=== PATIENT | female | born 1995 | race Hispanic/Latino ===

== ENCOUNTER 2018-08-17 00:50 | Emergency (ER) | payer OTHER, SELFPAY ==
--- NOTE | 2018-08-17 02:42 | ER ---
Nurse's Notes [facility] Name: Alexa Fields Age: 23 yrs Sex: Female : 1995 Arrival Date: 08/17/2018 Time: 00:51 Bed 9 Private MD: Diagnosis: Influenza due to identified novel influenza A virus Presentation: 08/17 01:02 Presenting complaint: Patient states: Pt reports dry cough, chest pain with cough, ea headache, shortness of breath, nausea and vomiting since Thursday. Transition of care: patient was not received from another setting of care. Onset of symptoms was August 17, 2018. Risk Assessment: Do you want to hurt yourself or someone else? Patient reports no desire to harm self or others. Initial Sepsis Screen: Does the patient meet any 2 criteria? No. Patient's initial sepsis screen is negative. Does the patient have a suspected source of infection? No. Patient's initial sepsis screen is negative. Care prior to arrival: None. 01:02 Method Of Arrival: Ambulatory ea 01:02 Acuity: HODA 4 ea Triage Assessment: 01:06 General: Appears uncomfortable, Behavior is appropriate for age. Pain: Complains of ea pain in body aches. Neuro: Level of Consciousness is awake, alert, obeys commands, Oriented to person, place, time. Cardiovascular: Patient's skin is warm and dry. Respiratory: Airway is patent Respiratory effort is even, unlabored, Respiratory pattern is regular, symmetrical. Respiratory: Parent/caregiver reports the patient having cough that is non-productive, dry, hacking. GI: Reports nausea. 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 - Social history:: Smoking status: Patient uses tobacco products, smokes one-half pack cigarettes per day. - Ebola Screening: : No symptoms or risks identified at this time. Screenin:31 Abuse screen: Denies threats or abuse. Nutritional screening: No deficits noted. bb Tuberculosis screening: No symptoms or risk factors identified. Fall Risk None identified. Assessment: 02:31 General: Appears in no apparent distress. Behavior is calm, cooperative. Neuro: Level bb of Consciousness is awake, alert, obeys commands, Oriented to person, place, time, situation. Cardiovascular: Heart tones S1 S2 present. Respiratory: Reports cough that is persistent Respiratory effort is even, unlabored, Respiratory pattern is symmetrical, Breath sounds are clear bilaterally. GI: No deficits noted. Derm: Skin is pink, warm \T\ dry. Musculoskeletal: Circulation, motion, and sensation intact. 02:48 Reassessment: Patient is alert, oriented x 3, equal unlabored respirations, skin bb warm/dry/pink. pt verbalized understanding of and agrees to plan of care discharge instructions given pt ambulated with steady gait to exit. Vital Signs: 01:05 BP 120 / 77; Pulse 97; Resp 18; Temp 97.9; Pulse Ox 98% ; Weight 73.48 kg; Height 5 ft. ea 3 in. (160.02 cm); 02:31 BP 103 / 66; Pulse 95; Resp 18 S; Temp 98.3(O); Pulse Ox 100% on R/A; bb 01:05 Body Mass Index 28.70 (73.48 kg, 160.02 cm) ea ED Course: 00:51 Patient arrived in ED. am2 01:04 Triage completed. ea 02:12 Delma Liu FNP-C is [facility]. kb 02:12 Oscar Mckee MD is Attending Physician. kb 02:31 Patient has correct armband on for positive identification. Bed in low position. Call bb light in reach. 02:31 Pulse ox on. bb 02:48 No provider procedures requiring assistance completed. Patient did not have IV access bb during this emergency room visit. Administered Medications: No medications were administered Outcome: 02:42 Discharge ordered by . kb 02:48 Discharged to home ambulatory. bb 02:48 Condition: stable 02:48 Discharge instructions given to patient, Instructed on discharge instructions, follow up and referral plans. medication usage, Demonstrated understanding of instructions, follow-up care, medications, Prescriptions given X 2. 02:49 Patient left the ED. bb Signatures: Delma Liu FNP-C FNP-Ckb Ballard, Brenda, RN RN bb Moreno, Amanda am2 Angeline Rivera RN RN ea
--- NOTE | 2018-08-17 02:42 | EDPHYS ---
Physician Documentation [facility] Name: Alexa Fields Age: 23 yrs Sex: Female : 1995 Arrival Date: 08/17/2018 Time: 00:51 Bed 9 Private MD: ED Physician Oscar Mckee HPI: 08/17 02:19 This 23 yrs old Female presents to ER via Ambulatory with complaints of Cough, kb Nausea/Vomiting, Shortness Of Breath. 02:19 The patient or guardian reports cough, that is intermittent, described as mild, with no kb sputum, flu symptoms. Onset: The symptoms/episode began/occurred 2 day(s) ago. Severity of symptoms: At their worst the symptoms were moderate, in the emergency department the symptoms are unchanged. Modifying factors: The symptoms are alleviated by nothing, the symptoms are aggravated by nothing. Associated signs and symptoms: Pertinent positives: fever, nausea, rhinorrhea, vomiting, Pertinent negatives: chest pain, diarrhea, ear ache, sore throat. The patient has not experienced similar symptoms in the past. The patient has not recently seen a physician. 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 - Social history:: Smoking status: Patient uses tobacco products, smokes one-half pack cigarettes per day. - Ebola Screening: : No symptoms or risks identified at this time. ROS: 02:18 ENT: Negative for injury, pain, and discharge, Neck: Negative for injury, pain, and kb swelling, Cardiovascular: Negative for chest pain, palpitations, and edema, Back: Negative for injury and pain, MS/Extremity: Negative for injury and deformity, Skin: Negative for injury, rash, and discoloration, Neuro: Negative for headache, weakness, numbness, tingling, and seizure. 02:18 Constitutional: Positive for fatigue, fever, malaise, Negative for body aches, chills, poor PO intake, weight loss. 02:18 Respiratory: Positive for cough, Negative for dyspnea on exertion, hemoptysis, orthopnea, pleurisy, shortness of breath, sputum production, wheezing. 02:18 Abdomen/GI: Positive for nausea and vomiting. Exam: 02:19 Constitutional: This is a well developed, well nourished patient who is awake, alert, kb and in no acute distress. Head/Face: Normocephalic, atraumatic. ENT: Nares patent. No nasal discharge, no septal abnormalities noted. Tympanic membranes are normal and external auditory canals are clear. Oropharynx with no redness, swelling, or masses, exudates, or evidence of obstruction, uvula midline. Mucous membranes moist. Neck: Trachea midline, no thyromegaly or masses palpated, and no cervical lymphadenopathy. Supple, full range of motion without nuchal rigidity, or vertebral point tenderness. No Meningismus. Chest/axilla: Normal chest wall appearance and motion. Nontender with no deformity. No lesions are appreciated. Cardiovascular: Regular rate and rhythm with a normal S1 and S2. No gallops, murmurs, or rubs. Normal PMI, no JVD. No pulse deficits. Respiratory: Lungs have equal breath sounds bilaterally, clear to auscultation and percussion. No rales, rhonchi or wheezes noted. No increased work of breathing, no retractions or nasal flaring. Abdomen/GI: Soft, non-tender, with normal bowel sounds. No distension or tympany. No guarding or rebound. No evidence of tenderness throughout. Skin: Warm, dry with normal turgor. Normal color with no rashes, no lesions, and no evidence of cellulitis. MS/ Extremity: Pulses equal, no cyanosis. Neurovascular intact. Full, normal range of motion. Neuro: Awake and alert, GCS 15, oriented to person, place, time, and situation. Cranial nerves II-XII grossly intact. Motor strength 5/5 in all extremities. Sensory grossly intact. Cerebellar exam normal. Normal gait. Vital Signs: 01:05 BP 120 / 77; Pulse 97; Resp 18; Temp 97.9; Pulse Ox 98% ; Weight 73.48 kg; Height 5 ft. ea 3 in. (160.02 cm); 02:31 BP 103 / 66; Pulse 95; Resp 18 S; Temp 98.3(O); Pulse Ox 100% on R/A; bb 01:05 Body Mass Index 28.70 (73.48 kg, 160.02 cm) ea MDM: 02:12 Patient medically screened. kb 02:19 Data reviewed: vital signs, nurses notes. Data interpreted: Pulse oximetry: on room air kb is 98 %. Interpretation: normal. Counseling: I had a detailed discussion with the patient and/or guardian regarding: the historical points, exam findings, and any diagnostic results supporting the discharge/admit diagnosis, lab results, the need for outpatient follow up, a family practitioner, to return to the emergency department if symptoms worsen or persist or if there are any questions or concerns that arise at home. 08/17 01:08 Order name: Flu; Complete Time: 02:12 ea 08/17 01:08 Order name: Strep; Complete Time: 02:41 08/17 02:42 Order name: Throat Culture EDMS Administered Medications: No medications were administered Disposition: 10:22 Co-signature as Attending Physician, Oscar Mckee MD I agree with the assessment and wa plan of care. Disposition: 08/17/18 02:42 Discharged to Home. Impression: Influenza due to identified novel influenza A virus. - Condition is Stable. - Discharge Instructions: Influenza, Adult, [id number]. - Prescriptions for Tamiflu 75 mg Oral Capsule - take 1 capsule by ORAL route every 12 hours for 5 days; 10 capsule. Zofran 4 mg Oral Tablet - take 1 tablet by ORAL route every 6 hours As needed; 20 tablet. - Medication Reconciliation Form, Thank You Letter, Antibiotic Education, Prescription Opioid Use form. - Follow up: Emergency Department; When: As needed; Reason: Worsening of condition. Follow up: Private Physician; When: 2 - 3 days; Reason: Recheck today's complaints, Continuance of care, Re-evaluation by your physician. Signatures: Dispatcher [employer] EDMS Delma Liu, [place] RN RN bb Antunez, Elena, RN RN ea Appiah, William, MD MD wa Corrections: (The following items were deleted from the chart) 02:49 02:42 08/17/2018 02:42 Discharged to Home. Impression: Influenza due to identified bb novel influenza A virus. Condition is Stable. Forms are Medication Reconciliation Form, Thank You Letter, Antibiotic Education, Prescription Opioid Use. Follow up: Emergency Department; When: As needed; Reason: Worsening of condition. Follow up: Private Physician; When: 2 - 3 days; Reason: Recheck today's complaints, Continuance of care, Re-evaluation by your physician. kb
== END 2018-08-17 02:49 | disposition home or self-care (01) ==
LOC: ER 00:50
DX: J11.1 Influenza due to unidentified influenza virus with other respiratory manifestations (principal); F17.210 Nicotine dependence, cigarettes, uncomplicated
CPT/HCPCS: 87070; 87081; 87804; 99283

== ENCOUNTER 2018-09-16 12:45 | Emergency (ER) | payer OTHER ==
--- OUTSIDE RECORDS SUMMARY | 2018-09-16 12:57 | XMS REPORT ---
:1995 [facility] Address [address] [place] [address] Dr. Lima [address] [place] [id number] Care Team Providers Name Role Phone Unavailable Unavailable Unavailable Problems This patient has no known problems. Allergies, Adverse Reactions, Alerts This patient has no known allergies or adverse reactions. Medications This patient has no known medications.
[2018-09-16 15:46] LABS: Absolute Lymphocytes (CBC) 2.7 K/uL (0.7-4.9); Absolute Monocytes 0.6 K/uL (0.1-1.3); Basophils % 0.4 % (0-1.3); Eosinophils % 1.7 % (0-4.4); Hematocrit 37.7 % (36.0-45.0); Lymphocytes % 35.7 % (15.3-44.8); MPV 10.3 fL (7.6-11.3); Monocytes % 8.5 % (3.3-12.3); RBC Red Blood Cell Count 4.21 M/uL (3.86-4.86)
[2018-09-16 15:55] LABS: Urine Blood 3+ (NEG); Urine Glucose NEGATIVE (NEG); Urine Protein NEGATIVE (NEG); Urine Specific Gravity 1.015 (1.005-1.030); Urine pH 6.5 (5.0-7.0)
[2018-09-16 16:04] LABS: Urine RBC 20-50 /HPF (NONE SEEN)
[2018-09-16 16:05] LABS: Urine Bacteria <20 /HPF (<20); Urine Culture Reflex Order REFLEXED
--- NOTE | 2018-09-16 16:21 | RAD REPORT ---
EXAM DESCRIPTION: US - Transvaginal OB - 09/16/2018 4:07 pm CLINICAL HISTORY: with vaginal bleeding COMPARISON: None. FINDINGS: The uterus 6 x 4 x 4 centimeters. A gestational sac is present within the endometrium. Wi thin this is a yolk sac and pole with a crown-rump length 4.9 millimeters. . Cardiac activity w as not visualized mily 2 Right ovary is normal in size and echotexture. Left ovary was not seen. Right and left adnexa unremar kable No significant free fluid is seen. IMPRESSION: Intrauterine with an estimated gestational age 5 weeks 6 days ADONIS 05/13/2019. Cardiac activity was not visualized. This may indicate a demise. This may represent a viable pr egnancy in which the heart rate is not yet detected. demise can also have this appearance. Foll ow up endovaginal sonogram in 1 week recommended
[2018-09-16 16:24] LABS: BUN Blood Urea Nitrogen 12 mg/dL (7-18); Bicarbonate 27 mmol/L (21-32); Glucose Level 87 mg/dL (74-106); HCG, Quantitative 1496 mIU/mL (1-3); Potassium 3.7 mmol/L (3.5-5.1); Sodium Level 144 mmol/L (136-145)
--- NOTE | 2018-09-16 17:24 | EDPHYS ---
Physician Documentation [facility] Name: Alexa Fields Age: 23 yrs Sex: Female : 1995 Arrival Date: 09/16/2018 Time: 12:46 Bed 18 Private MD: ED Physician Herbert Gee HPI: 09/16 15:04 This 23 yrs old Female presents to ER via Ambulatory with complaints of jmm Vaginal Bleeding, + Preg <12wks. 15:04 The patient presents to the emergency department with vaginal bleeding, that is light. jmm This is a 23 year old female that presents to the ED with increased vaginal bleeding beginning last week increasing today. Denies passing clots. Denies pelvic pain. Denies weakness. Denies shortness of breath. . 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 - Social history:: Smoking status: Patient/guardian denies using tobacco. - Ebola Screening: : No symptoms or risks identified at this time. ROS: 15:04 Constitutional: Negative for fever, chills, and weight loss, Cardiovascular: Negative jmm for chest pain, palpitations, and edema, Respiratory: Negative for shortness of breath, cough, wheezing, and pleuritic chest pain. 15:04 : Positive for vaginal bleeding. 15:04 All other systems are negative. Exam: 15:04 Head/Face: atraumatic. Eyes: EOMI, no conjunctival erythema appreciated ENT: Moist jmm Mucus Membranes Neck: Trachea midline, Supple Chest/axilla: Normal chest wall appearance and motion. Cardiovascular: Regular rate and rhythm. No edema appreciated Respiratory: Normal respirations, no respiratory distress appreciated 15:04 Constitutional: The patient appears in no acute distress, alert, awake. 15:04 Constitutional: The patient appears alert. 15:04 Abdomen/GI: Inspection: abdomen appears normal, Bowel sounds: normal, Palpation: abdomen is soft and non-tender, in all quadrants. 15:04 Back: ROM is normal. 15:04 Musculoskeletal/extremity: ROM: intact in all extremities. 15:04 Skin: Appearance: Color: normal in color. 15:04 Neuro: Orientation: is normal, Mentation: is normal, Memory: is normal. 15:04 Psych: Behavior/mood is pleasant, cooperative. Vital Signs: 13:07 BP 101 / 66; Pulse 77; Resp 16; Temp 98; Pulse Ox 100% ; Weight 74.84 kg; Height 5 ft. sv 3 in. (160.02 cm); Pain 0/10; 14:50 BP 92 / 61; Pulse 78; Resp 18; Pulse Ox 100% ; aj1 16:41 BP 96 / 64; Pulse 79; Resp 18; Pulse Ox 100% on R/A; aj1 13:07 Body Mass Index 29.23 (74.84 kg, 160.02 cm) sv MDM: 15:04 Patient medically screened. jalen 17:20 ED course: I discussed with the patient the inconcluside US findings along with pelvic jmm rest precautions. Patient will follow up with ob for further evaluation. patient was otherwise given strict return precautions for increased bleeding, weakness, pain, ect. Patient understood and agrees with the plan of care. . 17:24 Data reviewed: vital signs, nurses notes. Counseling: I had a detailed discussion with jalen the patient and/or guardian regarding: the historical points, exam findings, and any diagnostic results supporting the discharge/admit diagnosis, the need for outpatient follow up, to return to the emergency department if symptoms worsen or persist or if there are any questions or concerns that arise at home. 09/16 15:07 Order name: Quantitative Hcg; Complete Time: 16:25 [facility] 09/16 15:07 Order name: Abo/rh Typing; Complete Time: 17:21 [facility] 09/16 15:07 Order name: Basic Metabolic Panel; Complete Time: 16: [facility] 09/16 15:07 Order name: CBC with Diff; Complete Time: 16: [facility] 09/16 15:40 Order name: Urine Microscopic Only; Complete Time: 16: [facility] 09/16 15:47 Order name: Urine Dipstick--Ancillary (enter results); Complete Time: 16:25 09/16 15:07 Order name: IV Saline Lock; Complete Time: 15:31 [facility] 09/16 15:07 Order name: Labs collected and sent; Complete Time: 15: [facility] 09/16 15:07 Order name: NPO; Complete Time: 15:32 [facility] 09/16 15:07 Order name: Urine Dipstick-Ancillary (obtain specimen); Complete Time: 15:32 [facility] 09/16 15:47 Order name: Urine --Ancillary (enter results); Complete Time: 16:25 eb 09/16 16:06 Order name: Transvaginal OB; Complete Time: 16:25 [facility] 09/16 16:06 Order name: Urine Culture [facility] Administered Medications: No medications were administered Disposition: 19:06 Co-signature as Attending Physician, Herbert Gee MD. rn Disposition: 09/16/18 17:24 Discharged to Home. Impression: Threatened , Urinary tract infection, site not specified. - Condition is Stable. - Discharge Instructions: Threatened Miscarriage, and Urinary Tract Infection. - Prescriptions for Keflex 500 mg Oral Capsule - take 1 capsule by ORAL route every 12 hours for 10 days; 20 capsule. - Medication Reconciliation Form, Thank You Letter, Antibiotic Education, Prescription Opioid Use form. - Follow up: Private Physician; When: 2 - 3 days; Reason: Recheck today's complaints, Continuance of care, Repeat Beta-HCG (48 Hours), Re-evaluation by your physician. Signatures: Dispatcher [employer] [facility] Yanna Sneed RN RN sv Mickail, Joel, PA PA [facility] Herbert Gee MD MD rn Baxter, Heather, RN RN Corrections: (The following items were deleted from the chart) 16:06 15:36 1st Trimest Single 1st Fetus+US.RAD.BRZ ordered. [facility] 17:58 17:24 09/16/2018 17:24 Discharged to Home. Impression: Threatened ; Urinary hb tract infection, site not specified. Condition is Stable. Forms are Medication Reconciliation Form, Thank You Letter, Antibiotic Education, Prescription Opioid Use. Follow up: Private Physician; When: 2 - 3 days; Reason: Recheck today's complaints, Continuance of care, Repeat Beta-HCG (48 Hours), Re-evaluation by your physician. [facility]
--- NOTE | 2018-09-16 17:24 | ER ---
Nurse's Notes [facility] Name: Alexa Fields Age: 23 yrs Sex: Female : 1995 Arrival Date: 09/16/2018 Time: 12:46 Bed 18 Private MD: Diagnosis: Threatened ;Urinary tract infection, site not specified Presentation: 09/16 13:05 Presenting complaint: Patient states: is about 9 weeks and started having sv light vaginal bleeding a couple of days ago and today at 1200 started having heavy vaginal bleeding, has gone through 1 pad in the past hour. Denies dizziness/SOB. Transition of care: patient was not received from another setting of care. Onset of symptoms is unknown. Care prior to arrival: None. 13:05 Method Of Arrival: Ambulatory sv 13:05 Acuity: HODA 3 sv 16:41 Risk Assessment: Do you want to hurt yourself or someone else? Patient reports no aj1 desire to harm self or others. Initial Sepsis Screen: Does the patient meet any 2 criteria? No. Patient's initial sepsis screen is negative. Does the patient have a suspected source of infection? No. Patient's initial sepsis screen is negative. 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 - Social history:: Smoking status: Patient/guardian denies using tobacco. - Ebola Screening: : No symptoms or risks identified at this time. Screenin:40 Abuse screen: Denies threats or abuse. Denies injuries from another. Nutritional aj1 screening: No deficits noted. Tuberculosis screening: No symptoms or risk factors identified. 16:42 Fall Risk None identified. aj1 Assessment: 15:40 Obstetrical Assessment: Patient reports vaginal bleeding. General: Appears in no aj1 apparent distress. comfortable, Behavior is calm, cooperative, appropriate for age. Pain: Denies pain. Neuro: Level of Consciousness is awake, alert, obeys commands, Oriented to person, place, time, situation, Speech is normal, Facial symmetry appears normal. Cardiovascular: Patient's skin is warm and dry. Respiratory: Airway is patent Respiratory effort is even, unlabored, Respiratory pattern is regular, symmetrical. GI: No signs and/or symptoms were reported involving the gastrointestinal system. : Reports vaginal bleeding that is bright red, heavy flow. EENT: No signs and/or symptoms were reported regarding the EENT system. Derm: No signs and/or symptoms reported regarding the dermatologic system. Skin is pink, warm \T\ dry. normal. Musculoskeletal: No signs and/or symptoms reported regarding the musculoskeletal system. Circulation, motion, and sensation intact. 16:40 Reassessment: Patient appears in no apparent distress at this time. No changes from aj1 previously documented assessment. Patient and/or family updated on plan of care and expected duration. Pain level reassessed. Patient is alert, oriented x 3, equal unlabored respirations, skin warm/dry/pink. Vital Signs: 13:07 BP 101 / 66; Pulse 77; Resp 16; Temp 98; Pulse Ox 100% ; Weight 74.84 kg; Height 5 ft. sv 3 in. (160.02 cm); Pain 0/10; 14:50 BP 92 / 61; Pulse 78; Resp 18; Pulse Ox 100% ; aj1 16:41 BP 96 / 64; Pulse 79; Resp 18; Pulse Ox 100% on R/A; aj1 13:07 Body Mass Index 29.23 (74.84 kg, 160.02 cm) sv ED Course: 12:46 Patient arrived in ED. tw3 13:06 Triage completed. sv 13:07 Arm band placed on. sv 14:43 Mello Kelly PA is PHCP. [facility] 14:43 Herbert Gee MD is Attending Physician. [facility] 14:48 Heidy Manriquez RN is Primary Nurse. aj1 15:24 Initial lab(s) drawn, by hi, sent to lab. Inserted saline lock: 22 gauge in right dh3 antecubital area, using aseptic technique. Blood collected. 15:35 Urine collected: clean catch specimen, cloudy. 3 15:40 Patient has correct armband on for positive identification. Bed in low position. Call aj1 light in reach. Side rails up X 1. 15:40 No provider procedures requiring assistance completed. aj1 16:07 Transvaginal OB In Process Unspecified. EDMS 17:58 IV discontinued, intact, bleeding controlled, No redness/swelling at site. Pressure hb dressing applied. Administered Medications: No medications were administered Outcome: 17:24 Discharge ordered by MD. rao 17:58 Discharged to home ambulatory. 17:58 Condition: stable 17:58 Discharge instructions given to patient, Instructed on discharge instructions, follow up and referral plans. medication usage, Demonstrated understanding of instructions, follow-up care, medications, Prescriptions given X 1. 17:58 Patient left the ED. Signatures: Dispatcher [employer] EDHeidy Christopher RN RN ajYanna Arevalo RN RN sv Mickail, Joel, PA PA jmm Baxter, Heather, RN RN Lorenza Nolan 3 Tiffany Rios 3
== END 2018-09-16 17:58 | disposition home or self-care (01) ==
LOC: ER 12:45
DX: O20.0 Threatened abortion (principal); O23.41 Unspecified infection of urinary tract in pregnancy, first trimester; Z3A.01 Less than 8 weeks gestation of pregnancy
CPT/HCPCS: 36415; 76817; 80048; 81003; 81015; 81025; 84702; 85025; 86900; 86901; 87086; 87088; 99284